=== PATIENT | male | born 1965 | race Caucasian/White ===

== ENCOUNTER 2018-07-13 07:19 | Day surgery (SDC) | payer OTHER ==
[2018-07-13] MEDS ORDERED: ceFAZolin IV 1 gm in Dextrose 1 GM/50 ML BAG IVPB ONE (07:33)
[2018-07-13] MEDS ORDERED: EPINEPHrine 1:1000 Nasal Sol(30mL) ONE (07:34)
[2018-07-13] MEDS ORDERED: Lidocaine/Epinephrine 1% 1:100000 10 ML IJ ONE ×3 (07:34→10:18)
[2018-07-13] MEDS ORDERED: Oxymetazoline 0.05% Nasal Spray (30 ml) NS ONE (07:34)
[2018-07-13] MEDS ORDERED: Morphine 10 mg/5 ml Oral Soln PO PRN (08:16)
[2018-07-13] MEDS ORDERED: Dextrose 5%/0.45% NS 1,000 ML IV SCH (08:30)
[2018-07-13] MEDS ORDERED: Propofol 10 mg/ml Inj (20 ML) ONE (09:03)
[2018-07-13] MEDS ORDERED: Rocuronium 10 mg/ml (5 ml) ONE (10:19)
[2018-07-13] MEDS ORDERED: Neostigmine Methylsulfate 3mg/3ml Syringe IV ONE (10:20)
[2018-07-13] MEDS ORDERED: Lactated Ringer's 1,000 ML IV ONE (11:03)
[2018-07-13 12:24] VITALS: PULSE 53; RESP 16
[2018-07-13 13:42] VITALS: BP 117/65; TEMP 97.7; O2SAT 97
--- NOTE | 2018-07-13 21:28 | OP ---
PROCEDURE DATE: 07/13/2018 PREOPERATIVE DIAGNOSES: Nasal polyposis, sinusitis. POSTOPERATIVE DIAGNOSES: Nasal polyposis, sinusitis. PROCEDURES: Endoscopic bilateral ethmoidectomy, endoscopic bilateral sphenoidotomy, endoscopic bilateral frontal sinusotomy, endoscopic bilateral maxillary antrostomy. SIGNIFICANT FINDINGS: Polyps on the ethmoid sinuses, maxillary antrum stenosed on both sides, frontal recess stenosed on both sides, sphenoid antrum stenosed on both sides. DESCRIPTION OF PROCEDURE: The patient was brought into room, placed in supine position. Anesthesia was initiated through an ET tube. Adrenaline-soaked pledgets were inserted into nasal cavity, remained there for five minutes and removed. Navigation was set and used throughout the case in order to ensure that the skull base and orbit were not entered. A 0-degree scope was inserted into the left nasal cavity. Polyps were noted emanating from the middle meatus and injected lidocaine with epinephrine. A debrider was used to remove the polyps. The middle turbinate was noted to be floppy, therefore was also reduced in size using a debrider. The uncinate process was medialized and removed. The ethmoid bulla was entered using a debrider inferomedially going posteriorly to the basal lamella anterior and superiorly until the bulla was opened. Dissection was done anteriorly and superiorly. Next, the basal lamella was entered. Posterior ethmoid cells were entered and opened. Skull base was identified and followed anteriorly all the way to the area of the anterior ethmoid air cells. The frontal recess was noted to be stenosed and opened using forceps. The sphenoid antrum was noted to be stenosed and opened using forceps. The maxillary antrum was stenosed and opened using forceps. Attention was turned to the other side. Polyps were noted emanating from the middle meatus injected lidocaine with epinephrine. A debrider was used to remove the polyps. The middle turbinate was noted to be floppy and reduced in size. The uncinate process was medialized and removed. The ethmoid bulla was entered using a debrider, going posteriorly to the basal lamella, anterior and superiorly until the ethmoid bulla was removed. The basal lamella was entered. The posterior ethmoid cells were entered and opened. The skull base was identified and followed anteriorly to the area of the anterior ethmoid air cells. The frontal recess was noted to be stenosed and opened using forceps. The maxillary antrum was noted to be stenosed and opened using forceps. The sphenoid antrum was stenosed and opened using forceps. At that point, bleeding was controlled using suction cautery and adrenaline-soaked pledgets. The patient was taken off anesthesia and taken to recovery room in stable manner. Yoni Lopez MD
== END 2018-07-13 13:21 | disposition home or self-care (01) ==
LOC: C.SDS 07:19
PROVIDERS: ATTEND Otolaryngology
DX: J32.9 Chronic sinusitis, unspecified (principal); J33.9 Nasal polyp, unspecified
CPT/HCPCS: 31256; 31257; 31276; 88304; J0690; J2001; J2405; J2704; J2710; J3010; J7120